=== PATIENT | female | born 1980 | race Caucasian/White ===

== ENCOUNTER 2021-06-15 21:13 | Outpatient (CLI) | payer OTHER, SELFPAY ==
--- NOTE | 2021-06-15 13:30 | DI.RAD_ITS ---
Exam(s) XR HAND LT COMPLETE EXAM: XR HAND LT COMPLETE CLINICAL HISTORY: Persistent Left thumb/wrist/Left 1st MCP joint pain,acute TECHNIQUE: COMPARISON: No exams were available for comparison FINDINGS: Three views were obtained. No bony or soft tissue abnormality seen. IMPRESSION: RADIATION DOSE DELIVERED: Total DLP
== END 2021-06-15 21:33 ==
PROVIDERS: Visit Provider Nurse Practitioner Family
DX: M25.532 Pain in left wrist (principal); M79.645 Pain in left finger(s); M25.542 Pain in joints of left hand
CPT/HCPCS: 73130

== ENCOUNTER 2021-07-17 02:23 | Outpatient (CLI) | payer OTHER, SELFPAY ==
[2021-07-17 14:54] LABS: TSH (W/Ref FT4) 1.19 uIU/mL (0.36-3.74)
[2021-07-17 21:58] LABS: Estradiol 183 pg/mL (See Note)
[2021-07-17 22:25] LABS: FSH 15.8 mIU/mL (See Note)
== END 2021-07-17 02:24 | disposition home or self-care (01) ==
LOC: LBO 02:24
PROVIDERS: Visit Provider Obstetrics & Gynecology
DX: R23.2 Flushing (principal); R68.82 Decreased libido; R63.5 Abnormal weight gain
CPT/HCPCS: 36415; 82670; 83001; 84443

== ENCOUNTER → 2021-08-08 00:32 | Outpatient (CLI) | payer OTHER, SELFPAY ==
--- NOTE | 2021-08-08 15:21 | DI.MAMMO_ITS ---
Exam(s) MAMMO SCREENING EXAM: MAMMO SCREENING CLINICAL HISTORY: screening TECHNIQUE: Mammograms were interpreted according to the usual protocol including computer analysis w [employer] CAD system, tomosynthesis and C-view imaging. COMPARISON: None. Baseline examination. FINDINGS: The breasts are composed of scattered fibroglandular densities, Breast Density category B. No suspicious masses or suspicious microcalcifications are seen. No skin thickening or abnormal axillary lymph nodes are seen. IMPRESSION: BI-RADS Category 1, Negative mammogram Yearly screening mammography is recommended. Breast Density - Category B, scattered fibroglandular densities. A negative radiographic report should not delay biopsy if a dominant or clinically suspicious mass is present. Up to ten percent of cancers are not identified on mammography. A negative report may reinforce clinical impression. Adenosis and dense breasts may obscure an underlying neoplasm. False positive reports average 6 to 10%. Patient will receive a letter notifying them of these results.
== END ==
PROVIDERS: Visit Provider Obstetrics & Gynecology
DX: Z12.31 Encounter for screening mammogram for malignant neoplasm of breast (principal)
CPT/HCPCS: 77063; 77067

== ENCOUNTER 2021-10-04 10:45 | Outpatient (CLI) | payer OTHER, SELFPAY ==
--- NOTE | 2021-10-04 10:35 | DI.RAD_ITS ---
Exam(s) XR WRIST LT LIMITED EXAM: XR WRIST LT LIMITED CLINICAL HISTORY: left wrist pain, scaphoid malunion. TECHNIQUE: 2D digital imaging was performed. COMPARISON: CR XR HAND LT COMPLETE from 06/15/2021 FINDINGS: Two views No evidence of acute scaphoid fracture. No obvious avascular necrosis. Scapholunate distance is nor mal. No significant ulnar variance. IMPRESSION: DATA REPOSITORY: RADIATION DOSE DELIVERED:
== END 2021-10-04 10:46 | disposition home or self-care (01) ==
LOC: DIORS 10:46
PROVIDERS: Visit Provider Student in an Organized Health Care Education/Training Program
DX: M25.532 Pain in left wrist (principal)
CPT/HCPCS: 73100

== ENCOUNTER → 2021-11-07 02:02 | Outpatient (CLI) | payer OTHER, SELFPAY ==
--- NOTE | 2021-11-07 08:07 | DI.MRI_ITS ---
Exam(s) MR UPPER JOINT LT WO EXAM: MR UPPER JOINT LT WO CLINICAL HISTORY: ACUTE L WRIST PAIN, ? SCAPHOID FX,M25.515. TECHNIQUE: Multiplanar multisequence MRI was performed. COMPARISON: No exams were available for comparison FINDINGS: MR examination of the wrist was performed according to the usual protocol. There is reportedly a que stion of navicular fracture. There is abnormal signal of the navicular both in its proximal is cyst segment and in the navicular w aist. There are cortical signal abnormalities on the proximal volar aspect of the navicular probably representing a small fracture fragment. Additionally there are subtle linear changes through the na vicular waist consistent with a nondisplaced fracture at this site. No other fracture seen involving the bones of the carpus. Alignment appears within normal limits. N o significant ligamentous abnormality seen. No gross abnormality of the articular cartilage as visua lized. IMPRESSION: The appearance is consistent with a nondisplaced navicular waist fracture and fracture of the proxima l pole of the navicular. DATA REPOSITORY:
== END ==
PROVIDERS: Visit Provider Student in an Organized Health Care Education/Training Program
DX: S62.035A Nondisplaced fracture of proximal third of navicular [scaphoid] bone of left wrist, initial encounter for closed fracture (principal); X58.XXXA Exposure to other specified factors, initial encounter
CPT/HCPCS: 73221

== ENCOUNTER 2022-07-30 04:59 | Outpatient (CLI) | payer OTHER, SELFPAY ==
[2022-07-30 07:42] LABS: Anion Gap 10.5 mmol/L (3-11); BUN 14 mg/dL (7-18); CO2 25.5 mmol/L (21.0-32.0); Calcium 8.7 mg/dL (8.5-10.1); Calculated LDL 68 mg/dL (<100); Chloride 104 mmol/L (98-107); Cholesterol 167 mg/dL (<200); Estimated GFR 72.13 (mL/min/1.73m2); Glucose 94 mg/dL (74-106); HDL Cholesterol 87 mg/dL (40-60); Potassium 3.8 mmol/L (3.5-5.1); Sodium 140 mmol/L (136-145); Triglyceride 60 mg/dL (<150)
[2022-07-31 10:20] LABS: Hepatitis C Ab w Rflx HCV PCR Negative (Negative)
[2022-07-31 10:36] LABS: HIV-1/2 Ag & Ab Screen Negative (Negative)
== END 2022-07-30 05:00 | disposition home or self-care (01) ==
LOC: LBO 04:59
PROVIDERS: PCP Nurse Practitioner Family; Visit Provider Nurse Practitioner Family
DX: Z13.1 Encounter for screening for diabetes mellitus (principal); Z11.59 Encounter for screening for other viral diseases; Z13.220 Encounter for screening for lipoid disorders; Z11.4 Encounter for screening for human immunodeficiency virus [HIV]
CPT/HCPCS: 36415; 80048; 80061; 86803; 87389

== ENCOUNTER 2022-08-15 02:00 | Outpatient (CLI) | payer OTHER, SELFPAY ==
--- NOTE | 2022-08-15 08:46 | DI.MAMMO_ITS ---
Exam(s) MAMMO SCREENING EXAM: MAMMO SCREENING CLINICAL HISTORY: screening,z12.39 TECHNIQUE: Bilateral full field digital CC and MLO mammographic images were obtained with 3D tomosyn thesis and utilizing computer aided detection (CAD). COMPARISON: Available for comparison. FINDINGS: Masses/Architectural Distortion: None seen. Microcalcifications: No suspicious pleomorphic-type are seen. Skin Thickening/Nipple Retraction: None. IMPRESSION: 1. No significant interval change with no specific features of malignancy noted. 2. Unless there is more urgent need, screening mammography is recommended, as per [employer] [place] [employer] guidelines. BI-RADS Category 1 - Negative Breast Density - Category B - Scattered areas of fibroglandular density Breast density category C or D implies that the patient has dense breast tissue. Dense breast tissue is very common and is not abnormal but dense breast tissue can make it harder to find cancer on a ma mmogram. Also, dense breast tissue may increase their breast cancer risk. This information about the result of the mammogram report was provided to the patient to raise their awareness. Use this report when you speak with the patient about their risks for breast cancer, which includes their family hist ory. At that time, you may recommend for more screening tests (Ultrasound or MRI) as they might be us eful based on their risk. A negative radiographic report should not delay biopsy if a dominant or clinically suspicious mass is present. Up to ten percent of cancers are not identified on mammography. A negative report may reinforce clinical impression. Adenosis and dense breasts may obscure an underlying neoplasm. False positive reports average 6 to 10%. Patient will receive a letter notifying them of these results.
== END 2022-08-15 02:20 ==
LOC: DI 02:00
PROVIDERS: PCP Nurse Practitioner Family; Visit Provider Nurse Practitioner Family
DX: Z12.31 Encounter for screening mammogram for malignant neoplasm of breast (principal)
CPT/HCPCS: 77063; 77067

== ENCOUNTER 2023-01-07 12:39 | Outpatient (CLI) | payer OTHER, SELFPAY ==
[2023-01-07 13:28] LABS: ALT 13 U/L (14-59); AST 7 U/L (15-37); Albumin 3.6 g/dL (3.4-5.0); Alkaline Phosphatase 76 U/L (46-116); BUN 11 mg/dL (7-18); Bilirubin, Total 0.4 mg/dL (0.2-1.0); Calcium 9.4 mg/dL (8.5-10.1); Chloride 104 mmol/L (98-107); Estimated GFR 72.13 (mL/min/1.73m2); Glucose 97 mg/dL (74-106); Potassium 3.9 mmol/L (3.5-5.1); Sodium 138 mmol/L (136-145); Total Protein 7.7 g/dL (6.4-8.2)
== END 2023-01-07 12:40 | disposition home or self-care (01) ==
LOC: LBO 12:39
PROVIDERS: PCP Nurse Practitioner Family; Visit Provider Obstetrics & Gynecology
DX: Z13.9 Encounter for screening, unspecified (principal)
CPT/HCPCS: 36415; 80053

== ENCOUNTER 2023-01-22 16:11 | Outpatient (CLI) | payer OTHER, SELFPAY ==
[2023-01-22 16:41] VITALS: BP 117/84; PULSE 91; RESP 20; TEMP 36.6; O2SAT 97
[2023-01-22] MEDS: methylPREDNISolone ACETATE 40 MG/ML VIAL IJ (17:46)
--- NOTE | 2023-01-23 08:19 | PDOC.PAIN ---
Date of service: 01/22/23 Time of Service: 17:00 Pain Managment Procedure Note Procedure Note Procedure Note: ULTRASOUND GUIDED LEFT FIRST DORSAL COMPARTMENT INJECTION Pre-Procedural Evaluation: Noemí Hamilton has been referred to the Pain Management Center for an Ultrasound Guided left first dorsal compartment injection for a chief complaint of radial wrist pain. Pre-procedure Pain Score: 4/10 Dx: Left sided deQuervain's Tenosynovitis Patient was interviewed and the medical record reviewed. There were no medical, pharmacologic, radiographic, or other structural contraindications to preforming an ultrasound guided injection. Risks and expected side effects as well as potential benefits of the procedure were reviewed. The patient consent form was signed and witnessed. Standard time-out procedure was performed. The use of direct ultrasound visualization of the needle (rather than a non-guided injection) was required to increase patient safety by excluding inadvertent intramuscular, intratendinous, or intraneural needle placement and minimizing bleeding by avoiding osteochondral or vascular injury from the needle. Additionally, the increased accuracy of placement may increase clinical effectiveness and will allow higher diagnostic specificity when evaluating effectiveness of this injection. Procedure Description: The patient was placed in the seated position with the left arm on a Gomez Stand with the thumb up and automated blood pressure cuff and pulse oximeter applied for monitoring during the procedure and recorded in the medical record. Pre-injection ultrasound scanning of the area of interest was performed using linear transducer, identifying relevant anatomy, landmarks, and neurovascular structures allowing for optimal needle path. The site was then prepared in the usual sterile fashion, using thorough Chlorhexadine preparation of the skin and sterile draping. The same ultrasound transducer was then passed into the sterile field using sterile probe cover and sterile ultrasound gel. The injection target was again visualized. Skin and subcutaneous tissues were anesthetized with 1 mL of 1% Lidocaine. A 25G 1.5 inch needle was placed under live ultrasound guidance, using an [id number] approach, to the target area. After visualization of the needle tip at the target area, a mixture of 1 mL Depomedrol (40 mg/cc), followed by 1 mL 2% Lidocaine, totaling 2 mL of injectate was delivered after negative aspiration for blood. Ultrasound images were captured and stored for documentation purposes. Post-procedure Pain Score:0/10 Vital signs were stable throughout the procedure and were as recorded in the docflowsheet by the nursing staff. Follow up plans and appointments were discussed with the patient.Post procedure instruction was given as documented in nursing documentation and having met discharge criteria, they were discharged from the Pain Management Center. COMMENTS: She tolerated this procedure well. She will start stretching exercises in 2 day and this strengthening exercises once the pain has resolved. Jed Link DO, MPH [facility]-Pain Management [facility]-Center for Pain Management
== END 2023-01-22 16:12 | disposition home or self-care (01) ==
LOC: PC 16:13
PROVIDERS: PCP Nurse Practitioner Family; Visit Provider Preventive Medicine Occupational Medicine
DX: M65.4 Radial styloid tenosynovitis [de Quervain] (principal)
CPT/HCPCS: 00123; 20606; J1030

== ENCOUNTER → 2023-08-19 03:46 | Outpatient (CLI) | payer MEDICAID, SELFPAY ==
--- NOTE | 2023-08-19 11:51 | DI.MAMMO_ITS ---
Exam(s) MAMMO SCREENING EXAM: MAMMO SCREENING CLINICAL HISTORY: screening,Z12.39 TECHNIQUE: Mammograms were interpreted according to the usual protocol including computer analysis w [employer] CAD system, tomosynthesis and C-view imaging. COMPARISON: 2021 and 2022 FINDINGS: The breasts are composed of scattered fibroglandular densities, Breast Density category B. No suspicious masses or suspicious microcalcifications are seen. No skin thickening or abnormal axillary lymph nodes are seen. There has been no significant change from prior exams. IMPRESSION: BI-RADS Category 1, Negative mammogram Yearly screening mammography is recommended. Breast Density - Category B, scattered fibroglandular densities. A negative radiographic report should not delay biopsy if a dominant or clinically suspicious mass is present. Up to ten percent of cancers are not identified on mammography. A negative report may reinforce clinical impression. Adenosis and dense breasts may obscure an underlying neoplasm. False positive reports average 6 to 10%. Patient will receive a letter notifying them of these results.
== END ==
PROVIDERS: PCP Nurse Practitioner Family; Visit Provider Obstetrics & Gynecology
DX: Z12.39 Encounter for other screening for malignant neoplasm of breast (principal)
CPT/HCPCS: 77063; 77067

== ENCOUNTER 2024-02-13 00:41 | Outpatient (CLI) | payer MEDICAID, SELFPAY ==
--- OUTSIDE RECORDS SUMMARY | 2024-02-13 00:42 | XMS_ITS | Encounter Summary ---
[place] [address] Care Team Providers Care Vmware Engineer Name Role Phone Unavailable Primary Care Provider Unavailabl e Encounter Details Date Type Department Care Team (Latest Contact Info) Description 09/01/2022 Travel Social History Tobacco Use Types Packs/Day Years Used Date Smoking Tobacco: Never Smokeless Tobacco: Never Alcohol Use Standard Drinks/Week Comments Yes 0 (1 standard drink = 0.6 oz pur e alcohol) Pt states occ Sex and Gender Information Value Date Recorded Sex Assigned at Not on file Gender Identity Not on file Sexual Orientation Not on file documented as of this encounter Plan of Treatment Not on file documented as of this encounter Visit Diagnoses Not on filedocumented in this encounter
--- OUTSIDE RECORDS SUMMARY | 2024-02-13 00:42 | XMS_ITS | Encounter Summary ---
[place] [address] Care Team Providers Care Label Printer Name Role Phone Unavailable Primary Care Provider Unavailabl e Encounter Details Date Type Department Care Team (Latest Contact Info) Description 02/18/2022 Travel Social History Tobacco Use Types Packs/Day [...]
--- OUTSIDE RECORDS SUMMARY | 2024-02-13 00:42 | XMS_ITS | Encounter Summary ---
Author Organization [facility] [place] [address] Care Team Providers Care Range Manager Name Role Phone Unavailable Primary Care Provider Unavailabl e Reason for Visit * Reason Onset Date Comments Appointment 02/22/2022 Encounter Details Date Type Department Care Team (Late st Contact Info) Description 02/22/2022 [place] [address] Brian Mcghee MD [facility] [place] [address] Appointment Social History Tobacco Use Types Packs/Day Years Used Date Smoking Tobacco: Never Smokeless Tobacco: Never Alcohol Use Standard Drinks/Week Comments Yes 0 (1 standard drink = 0.6 oz pur e alcohol) Pt states occ Sex and Gender Information Value Date Recorded Sex Assigned at Not on file Gender Identity Not on file Sexual Orientation Not on file documented as of this encounter Miscellaneous Notes * Telephone Encounter - Jihan Padron - 02/27/2022 8:26 AM EST Appt on 04/29 changed to a TOV. Patient made aware. * Telephone Encounter - Debra Johns RN - 02/26/2022 2:23 PM EST Received the following message from scheduling team- Per Dr. Mcghee's last office visit note, he wanted a follow up after Noemí's CT. Her CT is scheduled on 03/01/[address] Mcghee doesn't have anything available until March. Noemí stated she washoping to have her FUV same day as the CT, but Dr. Mcghee is not in clinic on Fridays. Is it possible for this to be a TOV or a PHC? * Telephone Encounter - Jihan Padron - 02/25/2022 4:38 PM EST Pt scheduled. * Telephone Encounter - Jihan Padron - 02/25/2022 8:24 AM EST LM#2 PLEASE SCHEDULE A TOV PER DR MCGHEE, AFTER 03/01/22 CT ?? NXR L WRIST CT RESULTS * Telephone Encounter - Dominique Acevedo - 02/22/2022 10:07 AM EST LM#1 PLEASE SCHEDULE A TOV PER DR MCGHEE, AFTER 03/01/22 CT NXR L WRIST CT RESULTS documented in this encounter Plan of Treatment Not on file documented as of this encounter Visit Diagnoses Not on filedocumented in this encounter
--- OUTSIDE RECORDS SUMMARY | 2024-02-13 00:42 | XMS_ITS | Encounter Summary ---
Author Organization [facility] [place] [address] Care Team Providers Care Personnel Research Psychologist Name Role Phone Khushbu Hernandez APRN Primary Care Provider [phone] Encounter Details Date Type Department Care Team (Late st Contact Info) Description 09/04/2022 Telephone [place] [address] Brian Mcghee MD [facility] [address] [place] [address] Social History Tobacco Use Types Packs/Day Years [...] encounter Miscellaneous Notes * Telephone Encounter - Farnaz Clark - 09/04/2022 8:57 AM EDT LEFT A MESSAGE TO SCHEDULE SURGERY WITH DR MCGHEE documented in this encounter Plan of Treatment Not on file documented as of this encounter Visit Diagnoses Not on filedocumented in this encounter Care Teams Personnel Research Psychologist Relationship Specialty Start Date End Date Khushbu Hernandez APRN PCP - General Family Medicine 09/02/22 documented as of this encounter
--- OUTSIDE RECORDS SUMMARY | 2024-02-13 00:42 | XMS_ITS | Encounter Summary ---
Author Organization [facility] [place] [address] Care Team Providers Care Vice President Talent Management Name Role Phone Unavailable Primary Care Provider Unavailabl e Reason for Referral * Occupational Therapy (Routine) - Closed Specialty Diagnoses / Procedures Referred By Contac t Referred To Contact Occupational Therapy Diagnoses Pain in left wrist Berkley Gonzalez PA [facility] [place] [address] Referral ID Status Reason Start Date Expiration Date V isits Requested Visits Authorized [id number] Closed Evaluate and Treat 12/17/2021 06/15/2022 1 1 Reason for Visit * Reason Comments Establish Care XR (REQ [facility]) L W RIST PAIN DOI: 06/2021 NO PRIOR SURGERY NO CLAY 2ND OPINION W/C * Consultation (Routine) - Closed Specialty Diagnoses / Procedures Referred By Contac t Referred To Contact Orthopaedics Diagnoses Pain in left wrist L WRIST PAIN Sanjay Berger MD [address] [place] [address] [facility] [place] [address] Referral ID Status Reason Start Date Expiration Date V isits Requested Visits Authorized [id number] Closed Consult, Test & Treat PCP Updated and/or Approved 11/30/2021 11/30/2022 6 6 Encounter Details Date Type Department Care Team (Late st Contact Info) Description 12/17/2021 1:15 PM EDT Office [place] [address] [facility] [place] [address] Pain in left wrist Social History Tobacco Use Types Packs/Day Years Used Date Smoking Tobacco: Never Smokeless Tobacco: Never Alcohol Use Standard Drinks/Week Comments Yes 0 (1 standard drink = 0.6 oz pur e alcohol) Pt states occ Sex and Gender Information Value Date Recorded Sex Assigned at Not on file Gender Identity Not on file Sexual Orientation Not on file documented as of this encounter Last Filed Vital Signs Vital Sign Reading Time Taken Comments Blood Pressure 131/93 12/17/2021 1:11 PM EDT Pulse - - Temperature - - Respiratory Rate - - Oxygen Saturation - - Inhaled Oxygen Concentration - - Weight 95.3 kg (210 lb) 12/17/2021 1:11 PM EDT Height 172.7 cm (5' 8) 12/17/2021 1:11 PM EDT Body Mass Index 31.93 12/17/2021 1:11 PM EDT documented in this encounter Progress Notes * Berkley Gonzalez PA - 12/17/2021 1:15 PM EDT PATIENT NAME: Noemí Mcleod AGE: 41 y.o. MR#: [id number] DATE OF VISIT: 12/17/2021 DATE OF INJURY/ONSET: June 2021 STAFF: Dr. Mcghee CHIEF COMPLAINT: Left wrist pain HISTORY OF PRESENT ILLNESS: Ms. Mcleod is a right hand dominant 41 y.o. female who comes into clinic today for evaluation of the left wrist. The patient has a history significant for a left scaphoid fracture treated non-operatively at age 19. 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 15 minutes later it recurred and worsened. No numbness. She presented to Occupational Medicine 2 weeks later and was treated with conservative management with topical analgesia. She thenworked with hand therapy with KT tape with transient relief. She was then referred to Dr. Berger who ordered an MRI and referral to Dr. Mcghee. She reports that her pain has stayed the same. She reports worsening with gripping after the fact. She reports weakness. The pain is located over the dorsal radial aspect of the wrist. Medications and Allergies were reviewed in eD-H PAST MEDICAL HX: History reviewed. No pertinent past medical history. PAST SURGICAL HX: History reviewed. No pertinent surgical history. FAMILY HX: History reviewed. No pertinent family history. SOCIAL HX: Social History Occupational History ??? Not on file Tobacco Use ??? Smoking status: Never Smoker ??? Smokeless tobacco: Never Used Vaping Use ??? Vaping Use: Never used Substance and Sexual Activity ??? Alcohol use: Yes Comment: Pt states occ ??? Drug use: Never ??? Sexual activity: Not on file ROS: Constitutional: Denies fevers, chills Respiratory: Denies shortness of breath, cough Cardiac: Denies chest pain, palpitations GI: denies abdominal pain, nausea, vomiting Skin: Denies new rashes or lesions Neuro: no numbness Musculoskeletal: as above in HPI PHYSICAL EXAM: Ms. Mcleod is a 41 y.o. female General appearance: in no acute distress, alert, cooperative Psych: cooperative with exam, appropriate Head: normocephalic, atraumatic EENT: EOMI grossly intact Neck: supple, trachea midline Cardiac: regular rate and rhythm by peripheral pulse Lungs: non-labored respirations Musculoskeletal: LUE ??? Inspection: No erythema or edema. ??? Palpation: Mildly TTP over snuffbox. Moderately TTP over scaphoid volarly ??? ROM: Full finger and wrist ROM ??? Orthopedic testing: Negative Tesfaye test ??? Neurovascular: SGILT R/M/U/Ax nerve distributions; AIN/PIN/U nerves fire; 2+ radial pulse DIAGNOSTIC STUDIES: Left wrist outside XR and MRI were personally reviewed and demonstrate healed scaphoid fracture with mild radioscaphoid joint space narrowing and volar SL avulsion fracture. 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 She was counseled on conservative management with topical analgesia and hand therapy for which a prescription was provided today. She was counseled that further management with a steroid injection if she were to have persistent pain would be an option as well as surgical interventions including a wrist arthroscopy and possibly PRC. - Work comp paperwork completed today. - She will return for follow up in 2-3 months with left wrist XR with scaphoid views with Dr. Mcghee. - The patient understands to contact us if they have any other questions or concerns. Dr. Mcghee also evaluated and spoke with the patient at today's visit. Berkley Gonzalez PA-C Department of Orthopaedics [facility] documented in this encounter Plan of Treatment Scheduled Referrals Name Type Priority Associated Diagnoses Order Schedule Referral to Occupational Therapy Outpatient Referral Routine Pain in left wrist Ordered: 12/17/2021 documented as of this encounter Results * XR Wrist 3 Views Left (02/18/2022 1:23 PM EST) Anatomical Region Laterality Modality Left Digital Radiogra phy Impressions 02/18/2022 4:36 PM EST 1. ??Attenuated appearance of the proximal pole of the scaphoid with a relatively sclerotic appearance is consistent with ischemic changes of the proximal pole of the scaphoid. There is no fragmentation or titi collapse of the scaphoid. 2. ??The radial scaphoid joint space remains relatively well-preserved. I have personally reviewed the image(s) and the resident's interpretation and agree with the findings, Marcy Garay MD at 02/18/2022 4:36 PM Thank you for letting us participate in the care of this patient. ??If you are a health care provider and have any questions regarding this report, please contact the number below. ??For patients who have questions please contact the health long term care pharmacist that requested your imaging first. ? Narrative 02/18/2022 4:36 PM EST EXAMINATION: XR WRIST 3 VIEWS LEFT CLINICAL HISTORY: left radioscaphoid pain (as entered by ordering provider in the order requisition) TECHNIQUE: PA, oblique, lateral views of the left wrist. COMPARISON: MR left wrist 11/07/2021 Left wrist radiograph 10/04/2021 Left hand radiograph 06/15/2021 FINDINGS: There is a somewhat attenuated appearance of the proximal pole of the scaphoid with associated somewhat sclerotic appearance relative to the distal pole. There is no fragmentation or collapse of the proximal pole of the scaphoid. There is no fracture lucency of the scaphoid. The radial scaphoid and remaining radiocarpal joint space is preserved. Procedure Note Marcy Garay MD - 02/18/2022 EXAMINATION: XR WRIST 3 VIEWS LEFT CLINICAL HISTORY: left radioscaphoid pain (as entered by ordering providerin the order requisition) TECHNIQUE: PA, oblique, lateral views of the left wrist. COMPARISON: MR left wrist 11/07/2021 Left wrist radiograph 10/04/2021 Left hand radiograph 06/15/2021 FINDINGS: There is a somewhat attenuated appearance of the proximal pole of thescaphoid with associated somewhat sclerotic appearance relative to the distal pole.There is no fragmentation or collapse of the proximal pole of the scaphoid.There is no fracture lucency of the scaphoid. The radial scaphoid and remaining radiocarpal joint space is preserved. IMPRESSION 1. Attenuated appearance of the proximal pole of the scaphoid with arelatively sclerotic appearance is consistent with ischemic changes of the proximalpole of the scaphoid. There is no fragmentation or titi collapse of thescaphoid. 2. The radial scaphoid joint space remains relatively well-preserved. I have personally reviewed the image(s) and the resident's interpretationand agree with the findings, Marcy Garay MD at 02/18/2022 4:36 PM Thank you for letting us participate in the care of this patient. If youare a health care provider and have any questions regarding this report,please contact the number below. For patients who have questions please contactthe health long term care pharmacist that requested your imaging first. Brian Mcghee MD IMG DX ORDERABLES documented in this encounter Visit Diagnoses Diagnosis Pain in left wrist Pain in joint, forearm Pain in left wrist Pain in joint, forearm documented in this encounter
--- OUTSIDE RECORDS SUMMARY | 2024-02-13 00:42 | XMS_ITS | Encounter Summary ---
[place] [address] Care Team Providers Care Cigarette Inspector Name Role Phone Unavailable Primary Care Provider Unavailabl e Encounter Details Date Type Department Care Team (Latest Contact Info) Description 03/01/2022 Travel Social History Tobacco Use Types Packs/Day [...]
--- OUTSIDE RECORDS SUMMARY | 2024-02-13 00:42 | XMS_ITS | Encounter Summary ---
[place] [address] Care Team Providers Care Repair Service Dispatcher Name Role Phone Unavailable Primary Care Provider Unavailabl e Reason for Referral * Diagnostic Test (Routine) - Closed Specialty Diagnoses / Procedures Referred By Contac t Referred To Contact Radiology Diagnoses Pain in left wrist Procedures CT Wrist wo Contrast Left (Generic) Karina Shankar MD [facility] [place] [address] [facility] [place] [address] Referral ID Status Reason Start Date Expiration Date V isits Requested Visits Authorized [id number] Closed Specialty Service Requested 02/18/2022 08/19/2023 1 1 Reason for Visit * Diagnostic Test (Routine) - Closed Specialty Diagnoses / Procedures Referred By Contac t Referred To Contact Radiology Diagnoses Pain in left wrist Procedures CT Wrist wo Contrast Left (Generic) Karina Shankar MD [facility] [place] [address] [facility] [place] [address] Referral ID Status Reason Start Date Expiration Date V isits Requested Visits Authorized [id number] Closed Specialty Service Requested 02/18/2022 08/19/2023 1 1 Encounter Details Date Type Department Care Team (Latest Contact Info) Description 03/01/2022 12:32 PM EST - 03/01/2022 11:59 PM EST Hospital [place] [address] Brian Mcghee MD [facility] [place] [address] Pain in left wrist Discharge Disposition: Home Social History Tobacco Use Types Packs/Day Years Used Date Smoking Tobacco: Never Smokeless Tobacco: Never Alcohol Use Standard Drinks/Week Comments Yes 0 (1 standard drink = 0.6 oz pur e alcohol) Pt states occ Sex and Gender Information Value Date Recorded Sex Assigned at Not on file Gender Identity Not on file Sexual Orientation Not on file documented as of this encounter Medications at Time of Discharge Medication Sig Dispensed Refills Start Date End Date buPROPion XL (Wellbutrin XL) 300 mg Tablet Extended Release 24 hr 12/10/2021 busPIRone (Buspar) 7.5 mg Tablet 12/11/19 22 proGESTerone (Prometrium) 100 mg Capsule 11/26/2021 documented as of this encounter Plan of Treatment Not on file documented as of this encounter Procedures Procedure Name Priority Date/Time Associated Diagnosis Comments CT WRIST WO CONTRAST LEFT Routine 03/01/2022 1:07 PM EST Pain in left wrist documented in this encounter Results * CT Wrist wo Contrast Left (Generic) (03/01/2022 1:07 PM EST) Anatomical Region Laterality Modality Wrist Left Computed Tomogra phy Impressions 03/01/2022 4:27 PM EST 1. ??No acute left wrist scaphoid fracture. 2. ??Healed fracture of body of scaphoid with completely obliterated fracture line, posttraumatic irregular, mckinney cortex surrounded by several tiny degenerative cysts. 3. ??No findings of proximal pole avascular necrosis. I have personally reviewed the image(s) and the resident's interpretation and agree with the findings, Sarina Clifton MD at 03/01/2022 4:27 PM Thank you for letting us participate in the care of this patient. ??If you are a health care provider and have any questions regarding this report, please contact the number below. ??For patients who have questions please contact the health customer care agent that requested your imaging first. ? Narrative 03/01/2022 4:27 PM EST EXAMINATION: CT WRIST WO CONTRAST LEFT (GENERIC) CLINICAL HISTORY: Left wrist scaphoid fracture? hx fracture at 19 and suspicious for fibrous nonunion as she has continued pain TECHNIQUE: 0.63 mm non-contrast axial CT images of the LEFT wrist were acquired. Sagittal and coronal reformats were created. On a separate workstation, 3-D reconstruction was performed. COMPARISON: Left wrist radiographs 02/18/2022; left wrist MRI 11/07/2021 FINDINGS: LEFT OSSEOUS STRUCTURES: Scaphoid Healed fracture at the scaphoid waist with several tiny cysts and volar cortical irregularity consistent with the history of remote injury. There is no increased sclerosis, fragmentation or collapse of the proximal pole of the scaphoid. No findings of avascular necrosis. No evidence of nonunion. Carpal joint spaces are preserved. No acute fracture. Small bone island at the ulnar epiphysis. JOINTS: Distal radioulnar joint-congruent Remaining articulations-normal alignment TENDONS: No displaced tendon. MUSCLES: Normal density in muscle bulk. SOFT TISSUES: Normal. Procedure Note Sarina Clifton MD - 03/01/2022 EXAMINATION: CT WRIST WO CONTRAST LEFT (GENERIC) CLINICAL HISTORY: Left wrist scaphoid fracture? hx fracture at 19 andsuspicious for fibrous nonunion as she has continued pain TECHNIQUE: 0.63 mm non-contrast axial CT images of the LEFT wrist were acquired.Sagittal and coronal reformats were created. On a separate workstation, 3-D reconstruction was performed. COMPARISON: Left wrist radiographs 02/18/2022; left wrist MRI 11/07/2021 FINDINGS: LEFT OSSEOUS STRUCTURES: Scaphoid Healed fracture at the scaphoid waist with several tiny cysts and volarcortical irregularity consistent with the history of remote injury. There is noincreased sclerosis, fragmentation or collapse of the proximal pole of the scaphoid.No findings of avascular necrosis. No evidence of nonunion. Carpal joint spaces are preserved. No acute fracture. Small bone island at the ulnar epiphysis. JOINTS: Distal radioulnar joint-congruent Remaining articulations-normal alignment TENDONS: No displaced tendon. MUSCLES: Normal density in muscle bulk. SOFT TISSUES: Normal. IMPRESSION 1. No acute left wrist scaphoid fracture. 2. Healed fracture of body of scaphoid with completely obliteratedfracture line, posttraumatic irregular, mckinney cortex surrounded by several tiny degenerative cysts. 3. No findings of proximal pole avascular necrosis. I have personally reviewed the image(s) and the resident's interpretationand agree with the findings, Sarina Clifton MD at 03/01/2022 4:27 PM Thank you for letting us participate in the care of this patient. If youare a health care provider and have any questions regarding this report,please contact the number below. For patients who have questions please contactthe health customer care agent that requested your imaging first. Brian Mcghee MD IMG CT ORDERABLES documented in this encounter Visit Diagnoses Diagnosis Pain in left wrist Pain in joint, forearm documented in this encounter
--- OUTSIDE RECORDS SUMMARY | 2024-02-13 00:42 | XMS_ITS | Encounter Summary ---
Author Organization [facility] [place] [address] Care Team Providers Care Cloth Hand Name Role Phone Unavailable Primary Care Provider Unavailabl e Encounter Details Date Type Department Care Team (Late st Contact Info) Description 03/17/2017 Orders Only Hematology [place] [address] Rickie Armstrong MD [facility] DR HEMATOLOGY/[place] [address] Stem cell donor Social History Tobacco Use Types Packs/Day Years Used Date Smoking Tobacco: Never Assessed Sex and Gender Information Value Date Recorded Sex Assigned at Not on file Gender Identity Not on file Sexual Orientation Not on file documented as of this encounter Plan of Treatment Not on file documented as of this encounter Visit Diagnoses Diagnosis Stem cell donor documented in this encounter
--- OUTSIDE RECORDS SUMMARY | 2024-02-13 00:42 | XMS_ITS | Clinical Summary ---
Author Organization [facility] [place] [address] Care Team Providers Care Engineering Leader Name Role Phone Khushbu Hernandez APRN Primary Care Provider [phone] Allergies Active Allergy Reactions Criticality Noted Date Comments Penicillins Hives,Rash 04/04/2010 Medications Medication Sig Dispensed Refills Start Date End Date Status buPROPion XL (Wellbutrin XL) 300 mg Tablet Extended Release 24 hr 12/10/2021 Active busPIRone (Buspar) 7.5 mg Tablet 12/10/2021 Active proGESTerone (Prometrium) 100 mg Capsule 11/26/2021 Active hydrOXYzine (Atarax) 25 mg tablet 08/16/2022 Active topiramate (Topamax) 25 mg tablet 07/19/2022 Active Active Problems Problem Noted Date Diagnosed Date Pain in left wrist 12/17/2021 Social History Tobacco Use Types Packs/Day Years Used Date Smoking Tobacco: Never Smokeless Tobacco: Never Alcohol Use Standard Drinks/Week Comments Yes 0 (1 standard drink = 0.6 oz pur e alcohol) Pt states occ Sex and Gender Information Value Date Recorded Sex Assigned at Not on file Gender Identity Not on file Sexual Orientation Not on file Last Filed Vital Signs Vital Sign Reading Time Taken Comments Blood Pressure 126/84 02/18/2022 1:34 PM EST Pulse - - Temperature - - Respiratory Rate - - Oxygen Saturation - - Inhaled Oxygen Concentration - - Weight 94.3 kg (208 lb) 09/02/2022 12:59 PM EDT Height 172.7 cm (5' 8) 09/02/2022 12:59 PM EDT Body Mass Index 31.63 09/02/2022 12:59 PM EDT Plan of Treatment Health Maintenance Due Date Last Done Comments HIV screen 1998 Hepatitis C Screening 1998 Lipid Screening 1998 Hepatitis B vaccine (0-59 yrs) (1) 1999 Tetanus/Diphtheria/Pertussis Vaccines (1 - Tdap) 05/13 HPV test 2010 PAP Smear 2010 Breast Cancer Share Decision Needed 2020 Breast Cancer screening 2020 Diabetes Screening (HgbA1C or Glucose) 2020 Covid-19 Vaccine (1 - 2023- season) 2023 Influenza (Flu) vaccine (1 o f 1 - Influenza standard series) 11/30/2023 Care Teams Engineering Leader Relationship Specialty Start Date End Date Khushbu Hernandez APRN PCP - General Family Medicine 09/02/22
--- OUTSIDE RECORDS SUMMARY | 2024-02-13 00:42 | XMS_ITS | Encounter Summary ---
Author Organization [facility] [place] [address] Care Team Providers Care Welder Fitter Apprentice Name Role Phone Unavailable Primary Care Provider Unavailabl e Reason for Visit * (Routine) - Closed Specialty Diagnoses / Procedures Referred By Contsantosh t Referred To Contact Radiology Diagnoses Left wrist pain Procedures Request for 2nd read MR Upper Extremity Sanjay Berger MD [address] [place] [address] Referral ID Status Reason Start Date Expiration Date Visits Re quested Visits Authorized [id number] Closed 11/09/2021 11/09/2022 1 1 Encounter Details Date Type Department Care Team (Latest Contact Info) Description 11/09/2021 12:30 PM EDT Ancillary Procedure Radiology Library at [facility] [place] [address] Sanjay Berger MD [address] [place], [place] [id number] Left wrist pain Social History Tobacco Use Types Packs/Day Years Used Date Smoking Tobacco: Never Assessed Sex and Gender Information Value Date Recorded Sex Assigned at Not on file Gender Identity Not on file Sexual Orientation Not on file documented as of this encounter Plan of Treatment Not on file documented as of this encounter Procedures Procedure Name Priority Date/Time Associated Diagnosis Comments REQUEST FOR 2ND READ MR UPPER EXTREMITY Routine 11/09/2021 12:28 PM EDT Left wrist pain documented in this encounter Results * Request for 2nd read MR Upper Extremity (11/09/2021 12:28 PM EDT) Anatomical Region Laterality Modality SO Impressions 11/09/2021 1:11 PM EDT 1. ??Sequela of prior scaphoid fracture with intermediate T1 hypointense signal alteration corresponding to the site of mild sclerosis of the attenuated proximal pole of the scaphoid on radiographs dated 10/04/2021. Findings raise concerns for ischemic change of the proximal pole scaphoid, but there is no severely decreased T1 and T2 hypointense signal to suggest advanced stage avascular necrosis. There is also no collapse or titi fragmentation of the scaphoid. 2. ??Associated disruption of the volar component of the scapholunate ligament. 3. ??Mild soft tissue edema along the dorsal aspect of the proximal scaphoid and radial scaphoid joint is nonspecific and could reflect acute on chronic injury at this site. Thank you for letting us participate in the care of this patient. ??If you are a health care provider and have any questions regarding this report, please contact the number below. ??For patients who have questions please contact the health director of primary care that requested your imaging first. ? Narrative 11/09/2021 1:11 PM EDT EXAMINATION: REQUEST FOR 2ND READ MR UPPER EXTREMITY CLINICAL HISTORY: History of previous scaphoid fracture years ago, treated with cast. Acute onset of pain which has localized to the radioscaphoid joint; New fracture of scaphoid? Other pathology to explain radial sided wrist pain.; Sending Institution [facility]; Date of exam [id number]; I believe a reinterpretation of this exam may alter care of Patient. Yes; History of previous scaphoid frac ?? (as entered by ordering provider in the order requisition) TECHNIQUE: MR of the right wrist was performed without contrast at an outside facility and submitted for outside film review. The patient's wrist is positioned in a somewhat flexed and radially deviated position. COMPARISON: Left wrist radiograph 10/04/2021 FINDINGS: Tendons: The extensor and flexor tendons are intact. Ligaments: Poor visualization of the volar component of the scapholunate ligament. The dorsal component of the scapholunate is intact (series 9001, image 21). The lunotriquetral ligament is intact. ??The triangular fibrocartilage complex is intact. Bones, cartilage, and joints: No acute fracture. However, there is mildly decreased, intermediate T1 signal of the proximal pole of the scaphoid with a small amount of cystic change, consistent with sequela of prior scaphoid fracture. There is also an attenuated appearance of the proximal pole of the scaphoid. There is no dark T1 and T2 signal of the scaphoid marrow to suggest end-stage avascular necrosis. There is no collapse of the scaphoid. There is some bony irregularity along the volar-proximal pole of the scaphoid (7001, image 20), which could relate to the sequela of clinically reported remote scaphoid fracture, but there is no titi fragmentation. No discrete cartilage defects. Muscles and soft tissues: There is mild edema along the dorsal aspect of the proximal pole scaphoid (series 9001, image 21). Normal bulk and signal of the visualized muscles. Normal caliber and signal of the visualized median and ulnar nerves. Procedure Note Marcy Garay MD - 11/09/2021 EXAMINATION: REQUEST FOR 2ND READ MR UPPER EXTREMITY CLINICAL HISTORY: History of previous scaphoid fracture years ago,treated with cast. Acute onset of pain which has localized to the radioscaphoid joint;New fracture of scaphoid? Other pathology to explain radial sided wristpain.; Sending Institution [facility]; Date of [id number]; I believe a reinterpretation of this exam may alter care of Patient. Yes;History of previous scaphoid frac (as entered by ordering provider in theorder requisition) TECHNIQUE: MR of the right wrist was performed without contrast at an outsidefacility and submitted for outside film review. The patient's wrist is positioned kayleigh somewhat flexed and radially deviated position. COMPARISON: Left wrist radiograph 10/04/2021 FINDINGS: Tendons: The extensor and flexor tendons are intact. Ligaments: Poor visualization of the volar component of the scapholunate ligament. The dorsal component of the scapholunate is intact (series 9001,image 21). The lunotriquetral ligament is intact. The triangularfibrocartilage complex is intact. Bones, cartilage, and joints: No acute fracture. However, there ismildly decreased, intermediate T1 signal of the proximal pole of the scaphoidwith a small amount of cystic change, consistent with sequela of prior scaphoid fracture. There is also an attenuated appearance of the proximal pole ofthe scaphoid. There is no dark T1 and T2 signal of the scaphoid marrow tosuggest end-stage avascular necrosis. There is no collapse of the scaphoid. Thereis some bony irregularity along the volar-proximal pole of the scaphoid(7001, image 20), which could relate to the sequela of clinically reportedremote scaphoid fracture, but there is no titi fragmentation. No discretecartilage defects. Muscles and soft tissues: There is mild edema along the dorsal aspect ofthe proximal pole scaphoid (series 9001, image 21). Normal bulk and signal ofthe visualized muscles. Normal caliber and signal of the visualized median andulnar nerves. IMPRESSION 1. Sequela of prior scaphoid fracture with intermediate T1 hypointensesignal alteration corresponding to the site of mild sclerosis of the attenuated proximal pole of the scaphoid on radiographs dated 10/04/2021. Findingsraise concerns for ischemic change of the proximal pole scaphoid, but there isno severely decreased T1 and T2 hypointense signal to suggest advancedstage avascular necrosis. There is also no collapse or titi fragmentation ofthe scaphoid. 2. Associated disruption of the volar component of the scapholunateligament. 3. Mild soft tissue edema along the dorsal aspect of the proximalscaphoid and radial scaphoid joint is nonspecific and could reflect acute on chronicinjury at this site. Thank you for letting us participate in the care of this patient. If youare a health care provider and have any questions regarding this report,please contact the number below. For patients who have questions please contactthe health director of primary care that requested your imaging first. Sanjay Berger MD IMG OUTSIDE INTERPRE TATION ORDERABLES documented in this encounter Visit Diagnoses Diagnosis Left wrist pain Pain in joint, forearm documented in this encounter
--- OUTSIDE RECORDS SUMMARY | 2024-02-13 00:42 | XMS_ITS | Encounter Summary ---
[place] [address] Care Team Providers Care Crimper Assembler Name Role Phone Unavailable Primary Care Provider Unavailabl e Encounter Details Date Type Department Care Team (Latest Contact Info) Description 03/05/2022 Travel Social History Tobacco Use Types Packs/Day [...]
--- OUTSIDE RECORDS SUMMARY | 2024-02-13 00:42 | XMS_ITS | Encounter Summary ---
Author Organization [facility] Address [facility] [place] [address] Care Team Providers Care Milk Processing Worker Name Role Phone Unavailable Primary Care Provider Unavailabl e Encounter Details Date Type Department Care Team (Late st Contact Info) Description 03/06/2022 1:40 PM EST TH Visit (TeleHealth) [place] [address] Brian Mcghee MD [facility] DR ORTHOPAEDIC SURGERY [place] [address] Pain in left wrist Social History Tobacco [...] on file documented as of this encounter Progress Notes * Brian Mcghee MD - 03/06/2022 1:40 PM EST Noemí Harsha and I had a telephone discussion to review her left wrist imaging. She recently hada CT scan done on 03/01/2022. She reports that she is working full duty. She seems to be managing her wrist pain symptomatically reasonably well. I personally reviewed the imaging of her right wrist including the CT scan, the plain x-rays that were done on 02/18/2022, and the prior MRI that was done on 11/07/2021. These appear to show irregularity of the proximal pole of the scaphoid. The most recent CT scan does not show a fracture of her scaphoid. I do question whether or not there may be some atrophic changes of the proximal pole the scaphoid that could have been consistent with a prior vascular insult and perhaps even some degree of avascular necrosis which has gone on to revascularize perhaps with creeping substitution. There is also some cortical joint surface irregularity of the scaphoid which can certainly be a source of her pain. I did talk to her about consideration of salvage options for this such as proximal row carpectomy or scaphoid excision and 4 corner fusion but if she is able to clinically manage her symptoms there is no reason to do this at the current time. She is working and she should continue to work to the limits of her comfort. I do believe that she is likely at maximal medical improvement. She will see mefor this in the future on a as needed basis. This phone call as well as review of her imaging and chart took approximately 20 minutes. documented in this encounter Plan of Treatment Not on file documented as of this encounter Visit Diagnoses Diagnosis Pain in left wrist Pain in joint, forearm documented in this encounter
--- OUTSIDE RECORDS SUMMARY | 2024-02-13 00:42 | XMS_ITS | Encounter Summary ---
Author Organization [facility], [facility] [place] [address] Care Team Providers Care Automotive Production Worker Name Role Phone Khushbu Hernandez APRN Primary Care Provider [phone] Encounter Details Date Type Department Care Team (Latest Contact Info) Description 09/02/2022 11:33 AM EDT - 09/02/2022 11:59 PM EDT Hospital Encounter XRay at [address] [place] [address] Brian Mcghee MD [facility] [place] [address] Pain in left wrist Discharge Disposition: Home [...] Sig Dispensed Refills Start Date End Date hydrOXYzine (Atarax) 25 mg tablet 023 topiramate (Topamax) 25 mg tablet 023 buPROPion XL (Wellbutrin XL) 300 mg Tablet Extended Release 24 hr 12/10/2021 busPIRone (Buspar) 7.5 mg Tablet 12/11/19 22 proGESTerone (Prometrium) 100 mg Capsule 11/26/2021 documented as of this encounter Plan of Treatment Not on file documented as of this encounter Procedures Procedure Name Priority Date/Time Associated Diagnosis Comments XR WRIST 3 VIEWS LEFT Routine 09/02/2022 11:46 AM EDT Pain in left wrist documented in this encounter Results * XR Wrist 3 Views Left (09/02/2022 11:46 AM EDT) Anatomical Region Laterality Modality Left Digital Radiogra phy Impressions 09/02/2022 12:38 PM EDT 1. ??Irregular and attenuated proximal pole of scaphoid with increased sclerosis but no fragmentation or collapse. Finding is nonspecific and may represent postsurgical change and or ischemia. Thank you for letting us participate in the care of this patient. ??If you are a health care provider and have any questions regarding this report, please contact the number below. ??For patients who have questions please contact the health urgent care physician that requested your imaging first. ? Electronically signed by: Sarina Clifton MD, [facility] ([phone]), at 09/02/2022 12:38 PM Narrative 09/02/2022 12:38 PM EDT EXAMINATION: XR WRIST 3 VIEWS LEFT CLINICAL HISTORY: preop planning, , entered by ordering service TECHNIQUE: LEFT wrist, 3 view[s] COMPARISON: CT scan, February 2022. FINDINGS: Bones Scaphoid-slightly irregular proximal pole in treatment with increased radiodensity but without fragmentation or collapse. Findings resemble Ulna styloid-a normal morphology without fracture or erosions. Joints Radiocarpal and distal radioulnar joint-congruent Soft tissues Normal Procedure Note Sarina Clifton MD - 09/02/2022 EXAMINATION: XR WRIST 3 VIEWS LEFT CLINICAL HISTORY: preop planning, , entered by ordering service TECHNIQUE: LEFT wrist, 3 view[s] COMPARISON: CT scan, February 2022. FINDINGS: Bones Scaphoid-slightly irregular proximal pole in treatment with increased radiodensity but without fragmentation or collapse. Findings resemble Ulna styloid-a normal morphology without fracture or erosions. Joints Radiocarpal and distal radioulnar joint-congruent Soft tissues Normal IMPRESSION 1. Irregular and attenuated proximal pole of scaphoid with increasedsclerosis but no fragmentation or collapse. Finding is nonspecific and mayrepresent postsurgical change and or ischemia. Thank you for letting us participate in the care of this patient. If youare a health care provider and have any questions regarding this report,please contact the number below. For patients who have questions please contactthe health urgent care physician that requested your imaging first. Brian Mcghee MD IMG DX ORDERABLES documented in this encounter Visit Diagnoses Diagnosis Pain in left wrist Pain in joint, forearm documented in this encounter Care Teams Automotive Production Worker Relationship Specialty Start Date End Date Khushbu Hernandez, CONVEYOR FEEDER PCP - General Family Medicine 09/02/22 documented as of this encounter
--- OUTSIDE RECORDS SUMMARY | 2024-02-13 00:42 | XMS_ITS | Encounter Summary ---
Author Organization [facility] [place] [address] Care Team Providers Care Operator Technician Name Role Phone Unavailable Primary Care Provider Unavailabl e Reason for Visit * Reason Onset Date Comments Appointment 03/05/2022 Encounter Details Date Type Department Care Team (Late st Contact Info) Description 03/05/2022 [place] [address] Brian Mcghee MD [facility] [place] [address] Appointment Social History Tobacco Use Types Packs/Day [...] encounter Miscellaneous Notes * Telephone Encounter - Kendal Snider - 03/05/2022 2:11 PM EST DONE, SCHEDULED * Telephone Encounter - Chani Morales - 03/05/2022 1:58 PM EST Images from the original note were not included. LM#1 to see if patient can do a TOV for tomorrow, 03/06/22, with Dr Mcghee to discuss MRI results Debra Johns RN P [facility] [place] Could we offer patient a TOV tomorrow? documented in this encounter Plan of Treatment Not on file documented as of this encounter Visit Diagnoses Not on filedocumented in this encounter
--- OUTSIDE RECORDS SUMMARY | 2024-02-13 00:42 | XMS_ITS | Encounter Summary ---
[place] [address] Care Team Providers Care Cement Paver Name Role Phone Unavailable Primary Care Provider Unavailabl e Encounter Details Date Type Department Care Team (Latest Contact Info) Description 02/22/2022 Travel Social History Tobacco Use Types Packs/Day [...]
--- OUTSIDE RECORDS SUMMARY | 2024-02-13 00:42 | XMS_ITS | Encounter Summary ---
Author Organization [facility] [place] [address] Care Team Providers Care Parachute Repairer Name Role Phone Unavailable Primary Care Provider Unavailabl e Reason for Visit * Reason Onset Date Comments Other 07/30/2022 Encounter Details Date Type Department Care Team (Late st Contact Info) Description 07/30/2022 Telephone [place] [address] Brian Mcghee MD [facility] [place] [address] Other Social History Tobacco Use Types Packs/Day Years [...] as of this encounter Miscellaneous Notes * Addendum Note - Debra Johns RN - 08/27/2022 8:31 AM EDTAddended by: DEBRA JOHNS on: 08/27/2022 08:31 AM Modules accepted: Orders * Telephone Encounter - Jihan Padron - 07/31/2022 8:15 AM EDT Patient scheduled for a surgical discussion with Dr. Mcghee. * Telephone Encounter - Giovanni Min Daniel - 07/30/2022 3:49 PM EDTSummary: Request for Surgery Name of person calling: [place]í Was this a new injury? No Have you had Surgery?No If so when? Who was the Surgeon? What is the question: Patient saw Dr Mcghee on 03/06/2022 and now would like to proceed with surgery. The note does not state if she would need another appt with Dr Mcghee prior to placing surgical orders. Please review and advise if another appt is needed prior to scheduling surgery. If an appt is needed, please advise if TOV is acceptable or if in person is needed. Best number to reach the caller: [phone] documented in this encounter Plan of Treatment Not on file documented as of this encounter Results * [...] who have questions please contact the health acute care physician that requested your imaging first. ? Electronically signed by: Sarina Clifton MD, [facility] ([phone]), at 09/02/2022 12:38 PM Narrative 09/02/2022 12:38 [...] patients who have questions please contactthe health acute care physician that requested your imaging first. Electronically signed by: Sarina Clifton MD, [facility]([phone]), at 09/02/2022 12:38 PM Brian Mcghee MD IMG DX ORDERABLES documented in this encounter Visit Diagnoses Diagnosis Pain in left wrist Pain in joint, forearm Pain in left wrist Pain in joint, forearm documented in this encounter
--- OUTSIDE RECORDS SUMMARY | 2024-02-13 00:42 | XMS_ITS | Encounter Summary ---
Author Organization [facility] [place] [address] Care Team Providers Care Balling Machine Operator Name Role Phone Unavailable Primary Care Provider Unavailabl e Encounter Details Date Type Department Care Team (Late st Contact Info) Description 02/20/2022 Telephone [place] [address] Brian Mcghee MD [facility] DR [place]OPA[place] [address] Social History Tobacco Use Types Packs/Day Years [...] Telephone Encounter - Jihan Padron - 02/25/2022 8:29 AM EST LM #2 for patient to arrive at location - for CT W/O CONTRAST L WRIST scheduled on 03/01/22 with an arrival time of 12:45pm ?? Left [phone] as a call back to schedule a follow up with Dr. Mcghee after 03/01. * Telephone Encounter - Yue Garcia - 02/20/2022 10:05 AM EST Left detailed message for patient to arrive at location - for CT W/O CONTRAST L WRIST scheduled on 03/01/22 with an arrival time of 12:45pm Left [phone] as a call back if date and time to schedule a follow up with Dr. Mcghee afterwards. documented in this encounter Plan of Treatment Not on file documented as of this encounter Visit Diagnoses Not on filedocumented in this encounter
--- OUTSIDE RECORDS SUMMARY | 2024-02-13 00:42 | XMS_ITS | Encounter Summary ---
Author Organization [facility] [place] [address] Care Team Providers Care Pattern Drum Maker Name Role Phone Unavailable Primary Care Provider Unavailabl e Encounter Details Date Type Department Care Team (Late st Contact Info) Description 06/15/2021 Ancillary Procedure Radiology Library at [facility] [place] [address] Sanjay Berger MD [address] [place] [address] Social History Tobacco Use Types Packs/Day Years Used Date Smoking Tobacco: Never Assessed Sex and Gender Information Value Date Recorded Sex Assigned at Not on file Gender Identity Not on file Sexual Orientation Not on file documented as of this encounter Plan of Treatment Not on file documented as of this encounter Procedures Procedure Name Priority Date/Time Associated Diagnosis Comments FILM LIBRARY STORAGE ONLY DX HAND Routine 06/15/2021 12:00 AM EDT documented in this encounter Results * Film Library- Storage Only DX Hand (06/15/2021 12:00 AM EDT) Narrative RAD - 11/09/2021 12:09 PM EDT This exam is auto-finalizing. It's purpose is for storage only. Sanjay Berger MD IMG FILM LIBRARY ORD ERABLES [facility] [place] documented in this encounter Visit Diagnoses Not on filedocumented in this encounter
--- OUTSIDE RECORDS SUMMARY | 2024-02-13 00:42 | XMS_ITS | Encounter Summary ---
Author Organization [facility] [place] [address] Care Team Providers Care Harbor Boat Pilot Name Role Phone Unavailable Primary Care Provider Unavailabl e Encounter Details Date Type Department Care Team (Late st Contact Info) Description 11/07/2021 Ancillary Procedure Radiology Library at [facility] [place] [address] Sanjay Berger MD [address] [place] [address] Social History Tobacco Use Types Packs/Day Years [...] Associated Diagnosis Comments FILM LIBRARY STORAGE ONLY MR WRIST Routine 11/07/2021 12:00 AM EDT documented in this encounter Results * Film Library- Storage Only MR Wrist (11/07/2021 12:00 AM EDT) Narrative RAD - 11/09/2021 12:10 PM EDT This exam is auto-finalizing. It's purpose is for storage only. Sanjay Berger MD IMG FILM LIBRARY ORD ERABLES [facility] [place] documented in this encounter Visit Diagnoses Not on filedocumented in this encounter
--- OUTSIDE RECORDS SUMMARY | 2024-02-13 00:42 | XMS_ITS | Encounter Summary ---
Author Organization [facility] [place] [address] Care Team Providers Care Equine Breeder Name Role Phone Unavailable Primary Care Provider Unavailabl e Reason for Referral * Diagnostic Test (Routine) - Closed Specialty Diagnoses / Procedures Referred By Contac t Referred To Contact Radiology Diagnoses Pain in left wrist Procedures CT Wrist wo Contrast Left (Generic) Karina Shankar MD [facility] DR ORTHOPAED[place] [address] [facility] [place] [address] Referral ID Status Reason Start Date Expiration Date V isits Requested Visits Authorized [id number] Closed Specialty Service Requested 02/18/2022 08/19/2023 1 1 Reason for Visit * Reason Comments Follow-up XR L WRIST PAIN DOI: 06/2021 W/C Encounter Details Date Type Department Care Team (Late st Contact Info) Description 02/18/2022 1:30 PM EST Office [place] [address] Elida Mcghee MD [facility] DR ORTHOPAEDIC [place] [address] Pain in left wrist Social History Tobacco [...] - - Weight 95.3 kg (210 lb) 02/18/2022 1:34 PM EST Height 172.7 cm (5' 8) 02/18/2022 1:34 PM EST Body Mass Index 31.93 02/18/2022 1:34 PM EST documented in this encounter Progress Notes * Karina Shankar MD - 02/18/2022 1:30 PM EST PATIENT NAME: Noemí Mcleod AGE: 41 y.o. MR#: [id number] DATE OF VISIT: 02/18/2022 DATE OF INJURY/ONSET: June 2021 STAFF: MD Taz CHIEF COMPLAINT: follow up for Left wrist pain HISTORY OF PRESENT ILLNESS: Ms. Mcleod is a 41 y.o. 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 She never had subsequent injury or trauma pain in this region until in June 2021 when she was lifting a heavy tray at work while she was covering a total joint arthroplasty case she felt a significant amount of pain in the dorsum of her wrist over the snuffbox. This persisted over the course the day and progressed to the point where by the end of the day she had significantly weak radiology scheduler strength and pain with gripping. This persisted for the last several months and has in fact gotten worse. Her radiology scheduler is the most challenging issue as this is integral to her job at work. She has tried an OT based thumb spica splint which she uses when she is not working however she is continued working in the last several months that time his injuries been occurring. She is also worked on hand OT at least twice a week for the last 6 weeks pretty diligently. She denies any numbness or tingling in the hand. She denies any pain elsewhere aside from the dorsum of the wrist at the level of the radial scaphoid joint in addition to the volar aspect of this joint as well. PHYSICAL EXAM: Ms. Mcleod is a 41 y.o. female who is in no apparent distress, alert and cooperative. Tender to palpation over the radius scaphoid joint volar and dorsal. Sensory intact to light touch in the median, radial, ulnar distributions. Brisk capillary refill distally. 2+ radial pulse. Flexion extension at the thumb IP is intact. EPL is intact and firing. DIAGNOSTIC STUDIES: Prior MRI reviewed which demonstrates some prior evidence of old injury at the scaphoid waist however MRI not the best study to further evaluate for possible fibrous nonunion. X-rays demonstrate today no acute osseous pathology that I can see. There is particular no flexion of the scaphoid or malalignment radial scaphoid joint. There is no collapse indicative of advanced arthritis. There is no SL ligament widening. SURVEY RESPONSES: No flowsheet data found. No flowsheet data found. No flowsheet data found. ASSESSMENT: Patient is now 7 months status post an injury to the radial aspect of her wrist at work and pain has persisted despite temporary splinting when she is not working, hand occupational therapy, and extensive time. In consideration of the all of this, there is concern that there is ongoing possible fibrous nonunion of the scaphoid fracture or other osseous pathology that is not well assessed on the MRI or plain x-rays. For this reason we discussed the importance of obtaining a CT in line with the axis of the scaphoid for better evaluation of the trabecular patterns possible fibrous nonunion. We discussed follow-up after the CT results to further discuss CT and neck steps. Patient was in agreement the plan as stated above. PLAN: CT without con left right for evaluation of scaphoid. F/up after CT performed. The patient understands to contact us if they have any other questions or concerns. The above documentation was completed using [employer] voice recognition software. * Elida Mcghee MD - 02/18/2022 1:30 PM EST I examined Noemí Harsha and I agree with Dr. Shankar's note. Her wrist pain persists and is not explained by prior imaging. There is a somewhat attenuated appearance to today's wrist x-rays that make me a bit worried about the possibility of an occult fracture and even possible ischemic changes in the proximal pole of the scaphoid. These x-rays were personally reviewed by me today. I recommended aCT scan to rule out the possibility of a fibrous union of her scaphoid or some other bony pathologythat I could not see on her MRI. I will see her back after this is completed. ELIDA MCGHEE MD documented in this encounter Plan of Treatment Not on file documented as of this encounter Results * CT Wrist wo [...] questions please contact the health acute care clinical nurse specialist that requested your imaging first. ? Narrative [...] have questions please contactthe health acute care clinical nurse specialist that requested your imaging first. Elida Mcghee MD IMG CT ORDERABLES documented in this encounter Visit Diagnoses Diagnosis Pain in left wrist Pain in joint, forearm Pain in left wrist Pain in joint, forearm documented in this encounter
--- OUTSIDE RECORDS SUMMARY | 2024-02-13 00:42 | XMS_ITS | Encounter Summary ---
Author Organization [facility] [place] [address] Care Team Providers Care Grey Stock Recorder Name Role Phone Unavailable Primary Care Provider Unavailabl e Encounter Details Date Type Department Care Team (Latest Contact Info) Description 02/18/2022 1:13 PM EST - 02/18/2022 11:59 PM EST Hospital Encounter XRay at [address] [place] [address] Brian Mcghee MD [facility] [place] [address] Pain in left wrist Discharge Disposition: Home [...] Comments XR WRIST 3 VIEWS LEFT Routine 02/18/2022 1:23 PM EST Pain in left wrist documented [...] who have questions please contact the health nanny caregiver that requested your imaging first. ? Electronically signed by: Marcy Garay MD, [facility] ([phone]), at 02/18/2022 4:36 PM Narrative 02/18/2022 4:36 PM EST EXAMINATION: XR [...] patients who have questions please contactthe health nanny caregiver that requested your imaging first. Electronically signed by: Marcy Garay MD, [facility]([phone]), at 02/18/2022 4:36 PM Brian Mcghee MD IMG DX ORDERABLES documented in this encounter Visit Diagnoses Diagnosis Pain in left wrist Pain in joint, forearm documented in this encounter
--- OUTSIDE RECORDS SUMMARY | 2024-02-13 00:42 | XMS_ITS | Encounter Summary ---
Author Organization [facility] [place] [address] Care Team Providers Care Trapper Bird Name Role Phone Khushbu Hernandez APRN Primary Care Provider [phone] Reason for Visit * Reason Comments Follow-up XR SURG DISCUSSIO N L WRIST PAIN W/C DOI: 06/2021 Encounter Details Date Type Department Care Team (Late st Contact Info) Description 09/02/2022 1:00 PM EDT [place] [phone] Brian Mcghee MD [facility] [place] [address] Pain in left wrist; Closed nondisplaced fracture of middle third of scaphoid bone of left wrist, sequela Social History Tobacco Use Types Packs/Day Years [...] Sign Reading Time Taken Comments Blood Pressure - - Pulse - - Temperature - - Respiratory Rate - - Oxygen Saturation - - Inhaled Oxygen Concentration - - Weight 94.3 kg (208 lb) 09/02/2022 12:59 PM EDT Height 172.7 cm (5' 8) 09/02/2022 12:59 PM EDT Body Mass Index 31.63 09/02/2022 12:59 PM EDT documented in this encounter Progress Notes * Mady Daniel PA - 09/02/2022 1:00 PM EDT Images from the original note were not included. PATIENT NAME: Noemí Mcleod AGE: 42 y.o. MR#: [id number] DATE OF VISIT: 09/02/2022 DATE OF INJURY/ONSET: June 2021 STAFF: Dr. Mcghee CHIEF COMPLAINT: Left wrist pain HISTORY OF PRESENT ILLNESS: Ms. Mcleod is a right hand dominant 42 y.o. female who comes into clinic today for evaluation of the left wrist. The patient states that her symptoms had been worsening until May when she transitioned to [facility] 8hr schedule. She states that all activities bother. No nighttime awakenings. She denies new injuries. She denies any numbness or tingling. She previously us ed Voltaren which worked well until it cause reflux. Patient notes her baseline pain is 3-4/10 and will increase to 7/10 with exacerbation. Medications and Allergies were reviewed in eD-H PAST MEDICAL HX: No past medical history on file. PAST SURGICAL HX: No past surgical history on file. FAMILY HX: No family history on file. 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 ROS: Constitutional: Denies fevers, chills Respiratory: Denies shortness of breath, cough Cardiac: Denies chest pain, palpitations GI: denies abdominal pain, nausea, vomiting Skin: Denies new rashes or lesions Neuro: no numbness, tingling Musculoskeletal: as above in HPI View : No data to display. View : No data to display. View : No data to display. PHYSICAL EXAM: Ms. Mcleod is a 42 y.o. female General appearance: in no acute distress, alert, cooperative Psych: cooperative with exam, appropriate Head: normocephalic, atraumatic EENT: EOMI grossly intact Neck: supple, trachea midline Cardiac: regular rate and rhythm by peripheral pulse Lungs: non-labored respirations Musculoskeletal: Inspection: Skin CDI. No ecchymosis, edema, or deformity is noted. Palpation: There is tenderness to palpation over the distal pole, anatomic snuffbox, and proximal pole. ROM/Strength: Full finger ROM. Full wrist ROM. Strength 4/5 on the left compared to contralateral side 5/5. Neurovascular: SGILT R/M/U/Ax nerve distributions; AIN/PIN/U nerves fire; 2+ radial pulse DIAGNOSTIC STUDIES: Left wrist XR were personally reviewed and demonstrates continued demonstrationof irregularity of proximal pole of the scaphoid. There is no acute fracture and appearance of the scaphoid remains stable compared to previous imaging. ASSESSMENT: 42-year-old [id number] female with history of left scaphoid fracture with chronic left wrist pain secondary to possible post-traumatic arthritis, history of or indolent avascular necrosis, or multifactorial etiology PLAN: - The patient was counseled on the nature of her symptoms and that it is unclear whether her symptoms are individual or a combination of the above stated etiologies as sequale of her previous scaphoid fracture. Relevant anatomy and pathology were reviewed. We discussed risks and benefits of relevant operative versus nonoperative treatment options. There include but are not limited to: CSI, splinting, partial wrist denervation, these options all short of more invasive surgical intervention in the way of proximal row carpectomy versus scaphoid excision four point fusion. After risk benefit discussion the patient elected to proceed with partial denervation of her left wrist as to hopefully return to work quickly without much down time. We did discuss the possibility of incomplete or no resolution of her symptoms. Surgical consent was reviewed and signed by the patient today. - All of her questions were sought and answered today. - Worker's compensation was completed and provided to the patient today. - She will return for follow up for surgery with Dr. Mcghee. - The patient understands to contact us if they have any other questions or concerns. Dr. Mcghee also evaluated and spoke with the patient at today's visit. Mady Daniel PA-C Department of Orthopaedics [facility] * Debra Johns RN - 09/02/2022 1:00 PM EDT Pre op teaching done for partial denervation. Emphasis placed on post op hand elevation with hand above heart, fingers above palm, palm above wrist and wrist above elbow. Patient also advised to use ice for swelling management. Post op splint should stay clean and dry until follow up appointment in about 2 weeks after surgery Reviewed suggestions for taking post op pain medication. Patient was advised to avoid NSAIDs about 7 days prior to surgery. Or as otherwise indicated by provider. Tylenol is okay to use. [place] opioid query, opioid risk assessment and acute opioid consent form completed today. Pre-op packet provided with patient education pamphlet, maps, clinic phone numbers and chlorhexidine soap to use the night before and morning of surgery. Patient knows to wait for a call from OR schedulers. Questions solicited and answered to patient satisfaction. Written material provided. Patient knows to call with any additional questions or concerns. * Brian Mcghee MD - 09/02/2022 1:00 PM EDT Noemí IvanAnthony was seen in conjunction with ESTELITA Mijares. She has previously seen me in the past with sequelae of a left scaphoid fracture with apparent vascular injury of the proximal pole the scaphoid. 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 She is tender fairly diffusely around her leftscaphoid. X-rays were done and personally were reviewed by me today. These show a dysmorphic appearance of the proximal half of her left scaphoid. It appears to be somewhat atrophic with a noncongruous radiocarpal articular surface. We talked about treatment options for this ranging from corticosteroid injection, partial wrist denervation, or more aggressive surgical salvage procedures like proximal row carpectomy or scaphoid excision with 4-corner fusion. We talked about some of the rationale for each of these options and the patient has decided she would like to proceed with partial wrist denervation. I did emphasize that this will not likely eradicate all of her pain but my goal would be for reduction in pain to make itmore tolerable for her. I described the procedure to her and did tell her she would likely need 3 to 4 weeks from work following this operation. She is aware that if she has persistence of pain afterward that a salvage procedure could still be done. I did tell her this procedure has risks which include but are not limited to infection, bleeding, and persistent pain. Her questions were solicited and answered and she wishes to proceed with left wrist partial denervation documented in this encounter Plan of Treatment Not on file documented as of this encounter Visit Diagnoses Diagnosis Pain in left wrist Pain in joint, forearm Closed nondisplaced fracture of middle third of scaphoid bone of left wrist, sequela documented in this encounter Care Teams Trapper Bird Relationship Specialty Start Date End Date Khushbu Hernandez APRN PCP - General Family Medicine 09/02/22 documented as of this encounter
--- OUTSIDE RECORDS SUMMARY | 2024-02-13 00:42 | XMS_ITS | Encounter Summary ---
Author Organization Formerly [facility] Address [facility] [place] [address] Care Team Providers Care Ben Day Artist Name Role Phone Unavailable Primary Care Provider Unavailabl e Reason for Referral * Consultation (Routine) - Closed Specialty Diagnoses / Procedures Referred By Contac t Referred To Contact Orthopaedics Diagnoses Pain in left wrist L WRIST PAIN Sanjay Berger MD [address] [place] [address] Brian Mcghee MD [facility] [place] [address] Referral ID Status Reason Start Date Expiration Date V isits Requested Visits Authorized [id number] Closed Consult, Test & Treat PCP Updated and/or Approved 11/30/2021 11/30/2022 6 6 Encounter Details Date Type Department Care Team (Late st Contact Info) Description 11/30/2021 Transcribe Orders eDH Incoming Referrals [phone] Sanjay Berger MD [address] [place], [place] [id number] Pain in left wrist Social History Tobacco Use Types Packs/Day Years Used Date Smoking Tobacco: Never Assessed Sex and Gender Information Value Date Recorded Sex Assigned at Not on file Gender Identity Not on file Sexual Orientation Not on file documented as of this encounter Plan of Treatment Scheduled Referrals Name Type Priority Associated Diagnoses Order Schedule Referral to Orthopaedics Outpatient Referral Routine Pain in left wrist Ordered: 11/30/2021 documented as of this encounter Visit Diagnoses Diagnosis Pain in left wrist Pain in joint, forearm documented in this encounter
--- NOTE | 2024-02-13 07:30 | DI.US_ITS ---
Exam(s) US SOFT TISSUE EXTREMITY EXAM: US SOFT TISSUE EXTREMITY CLINICAL HISTORY: ? SIRVA- left deltoid,pain in deltoid,m79.18,? fluid collection in area of. TECHNIQUE: Ultrasound was performed using standard protocol. COMPARISON: No exams were available for comparison FINDINGS: Sonographic assessment utilizing grayscale and color Doppler imaging was performed and targeted to th e area of clinical concern in left deltoid. There is no focal fluid collection in the skin or subcutaneous fat. There is no edema. IMPRESSION: No abnormality is identified. DATA REPOSITORY:
== END 2024-02-13 01:01 ==
LOC: DI 00:41
PROVIDERS: PCP Nurse Practitioner Family; Visit Provider Nurse Practitioner Family
DX: M79.18 Myalgia, other site (principal)
CPT/HCPCS: 76881

== ENCOUNTER 2024-04-08 05:01 | Outpatient (CLI) | payer MEDICAID, SELFPAY ==
[2024-04-09 10:49] LABS: Lyme Ab w Rflx to Lyme Confirm Negative (Negative)
[2024-04-11 16:50] LABS: Anaplasma phagocytophilum Negative (Negative); B. miyamotoi PCR Negative (Negative); Babesia divergens/MO-1 Negative (Negative); Babesia duncani Negative (Negative); Babesia microti Negative (Negative); Ehrlichia chaffeensis Negative (Negative); Ehrlichia ewingii/canis Negative (Negative); Ehrlichia muris eauclairensis Negative (Negative)
== END 2024-04-08 05:02 | disposition home or self-care (01) ==
LOC: LBO 05:01
PROVIDERS: PCP Nurse Practitioner Family; Visit Provider Nurse Practitioner Family
DX: M79.18 Myalgia, other site (principal); N95.1 Menopausal and female climacteric states
CPT/HCPCS: 36415; 80053; 87798; 86618

== ENCOUNTER 2024-04-12 02:23 | Outpatient (CLI) | payer MEDICAID, SELFPAY ==
--- NOTE | 2024-04-12 06:30 | DI.MRI_ITS ---
Exam(s) MR UPPER JOINT LT WO EXAM: MR UPPER JOINT LT WO CLINICAL HISTORY: L deltoid pain post vaccination 12/19/23,m79.18. TECHNIQUE: Multiplanar multisequence MRI was performed. COMPARISON: None. FINDINGS: BONES: There is no fracture or contusion pattern. Red marrow reconversion in the proximal humerus. Small degenerative subchondral cysts in the posterior superior humeral head. JOINTS:The acromioclavicular joint is shows mild spurring. The glenohumeral joint is normal. TENDONS: Supraspinatus: Unremarkable. Infraspinatus: Unremarkable. Subscapularis: Unremarkable. Teres Minor: Unremarkable. Biceps and [place]: Unremarkable. MUSCLES: Unremarkable. No abnormal signal within the deltoid muscle. No muscle atrophy. GLENOID LABRUM: Unremarkable on this noncontrast examination. SOFT TISSUES: Unremarkable. No edema or discrete fluid collection. BURSAE: Subacromial and subdeltoid bursae show no fluid. . IMPRESSION: Unremarkable MRI of the left shoulder. No abnormality of the deltoid or soft tissues is identified DATA REPOSITORY:
== END 2024-04-12 02:43 ==
LOC: DI 02:23
PROVIDERS: PCP Nurse Practitioner Family; Visit Provider Nurse Practitioner Family
DX: M79.18 Myalgia, other site (principal)
CPT/HCPCS: 73221

== ENCOUNTER 2024-09-24 00:50 | Outpatient (CLI) | payer MEDICAID, SELFPAY ==
[2024-09-24 11:00] LABS: ALT 20 U/L (14-59); AST 10 U/L (15-37); Albumin 3.6 g/dL (3.4-5.0); Alkaline Phosphatase 75 U/L (46-116); Anion Gap 7.6 mmol/L (3-11); BUN 9 mg/dL (7-18); Bilirubin, Total 0.4 mg/dL (0.2-1.0); CO2 26.4 mmol/L (21.0-32.0); CREATININE 0.9 mg/dL (0.55-1.02); Calcium 8.7 mg/dL (8.5-10.1); Chloride 104 mmol/L (98-107); Estimated GFR 80.84 (mL/min/1.73m2); Glucose 91 mg/dL (74-106); Potassium 3.9 mmol/L (3.5-5.1); Sodium 138 mmol/L (136-145); Total Protein 7.3 g/dL (6.4-8.2)
[2024-09-24 11:02] LABS: Calculated LDL 76 mg/dL (<100); Cholesterol 163 mg/dL (<200); HDL Cholesterol 74 mg/dL (>or=50); Triglyceride 67 mg/dL (<150)
== END 2024-09-24 00:51 | disposition home or self-care (01) ==
LOC: LBO 00:50
PROVIDERS: Obstetrics & Gynecology; PCP Nurse Practitioner Family; Visit Provider Nurse Practitioner Family
DX: Z00.00 Encounter for general adult medical examination without abnormal findings (principal); N95.1 Menopausal and female climacteric states
CPT/HCPCS: 36415; 80053; 80061; 82947

== ENCOUNTER 2024-09-29 02:45 | Outpatient (CLI) | payer MEDICAID, SELFPAY ==
--- NOTE | 2024-09-29 08:00 | DI.MAMMO_ITS ---
Exam(s) MAMMO SCREENING EXAM: MAMMO SCREENING CLINICAL HISTORY: screening,Z12.31 TECHNIQUE: Mammograms were interpreted according to the usual protocol including computer analysis with CAD system, tomosynthesis and C-view imaging. COMPARISON: 2021 through 2023 FINDINGS: The breasts are composed of scattered fibroglandular densities, Breast Density category B. No suspicious masses or suspicious microcalcifications are seen. No skin thickening or abnormal axillary lymph nodes are seen. There has been no significant change from prior exams. IMPRESSION: BI-RADS Category 1, Negative mammogram Yearly screening mammography is recommended. Breast Density - Category B - There are scattered areas of fibroglandular density. Breast density Category C or D implies that the patient has dense breast tissue. Dense breast tissue can make it harder to find cancer on a mammogram. Dense breast tissue is also associated with an increased risk of breast cancer. This information about the result of the mammogram report was provided to the patient to raise their awareness. Use this report when you speak with the patient about their risks for breast cancer, which includes their family history. At that time, you may recommend additional screening tests (Ultrasound or MRI) as these tests may add significant information. A negative radiographic report should not delay biopsy if a dominant or clinically suspicious mass is present. Up to ten percent of cancers are not identified on mammography. A negative report may reinforce clinical impression. Adenosis and dense breasts may obscure an underlying neoplasm. False positive reports average 6 to 10%. Patient will receive a letter notifying them of these results.
== END 2024-09-29 03:05 ==
PROVIDERS: PCP Nurse Practitioner Family; Visit Provider Nurse Practitioner Family
DX: Z12.31 Encounter for screening mammogram for malignant neoplasm of breast (principal); R92.323 Mammographic fibroglandular density, bilateral breasts
CPT/HCPCS: 77063; 77067